=== PATIENT | female | born 1945 | race Caucasian/White ===

== ENCOUNTER 2018-01-11 01:51 | Day surgery (SDC) | payer MEDICARE ==
[~2018-01-11] VITALS: Ht 157.5 cm; Wt 52.2 kg
[~2018-01-11 01:51] MED LIST: ASPI-757 PO; CA C1TAB11 PO; MULT-36 PO; OMEG1CAP99 PO
[2018-01-11 07:27] VITALS: BP 125/78
[2018-01-11] MEDS ORDERED: LIDOCAINE MPF 1% 5 ML VIAL ONE (07:49)
[2018-01-11] MEDS ORDERED: PROPOFOL EMUL(*) 10MG/ML 20 ML 40 ML ONE (07:49)
[2018-01-11 09:09] VITALS: BP 89/49
[2018-01-11 09:21] VITALS: BP 89/49
[2018-01-11 09:30] VITALS: BP 87/62
[2018-01-11 09:39] VITALS: BP 107/80
[2018-01-11] MEDS ORDERED: LIDOCAINE/SOD BICARB 8.4% SYR ID ONE (11:15)
[2018-01-11] MEDS ORDERED: NORMOSOL R SOLN(*) 1000 ML BAG 1,000 ML IV PRN (11:15)
== END 2018-01-11 09:52 | disposition home or self-care (01) ==
LOC: OR 01:51
PROVIDERS: ATTEND Family Medicine
DX: Z12.11 Encounter for screening for malignant neoplasm of colon (principal); K57.30 Diverticulosis of large intestine without perforation or abscess without bleeding
CPT/HCPCS: 00812; G0121; J2001; J2704